=== PATIENT | male | born 1950 | race Caucasian/White ===

== ENCOUNTER 2016-07-17 17:19 | Emergency (ER) | payer MEDICARE, OTHER ==
--- NOTE | ~2016-07-17 | CT71 ---
[facility] A Service of [facility] & [facility] / [facility] RADIOLOGY TEXT RESULTS PATIENT: LUIS DE SANTIAGO LOCATION: [facility] : 50 UNIT #: [id number] AGE: [address]: Dameon Aguilera MD SEX: M ORDER DR: [id number] [facility] [address] [place], [place] [address] [id number] MR#: [id number] Acc #: [id number] NAME: LUIS DE SANTIAGO. : 1950 SEX: M STUDY DATE/TIME: 07/17/2016 19:56 UNIT: [facility] ROOM: STUDY DESCRIPTION: CT Head Wo Contrast Attending Physician: Dameon Aguilera M.D. Ordering Physician: Dameon Aguilera M.D. Primary Care Physician: Primary Care Physician No MEDICAL IMAGING REPORT This report is preliminary unless electronic signature is present EXAM CT brain without contrast HISTORY Headache for 2 weeks. Hypertension. FINDINGS This CT exam was performed with one or more of the following radiation dose reduction techniques: Automatic exposure control, adjustment of mA and/or kV according to patient size, and iterative reconstruction. CT brain without contrast demonstrates no intracranial hemorrhage, mass or edema. No midline shift or ventricular dilatation or extraaxial fluid collection. Minimal chronic ischemic changes in the periventricular white matter bilaterally. IMPRESSION No acute findings. Dictated by... López Darling M.D. THIS IS AN ELECTRONICALLY VERIFIED REPORT López Darling M.D. at 07/18/2016 5:28 PM DFL/psc TD: 07/18/2016 00:39 JOB #: [id number] MEDICAL IMAGING REPORT Page 1 of 1 COPY
[2016-07-17] MEDS ORDERED: LIPITOR40 MG PO (17:34)
[2016-07-17] MEDS ORDERED: WELLBUTRIN100 MG PO (17:34)
[2016-07-17] MEDS ORDERED: ZESTORETIC 20-1 EAC1 PO (17:35)
[2016-07-17] MEDS ORDERED: K-DUR20 ME2 PO (17:36)
[2016-07-17] MEDS ORDERED: ZOLOFT100 MG PO (17:37)
[2016-07-17 18:44] LABS: BASOPHIL# 0.1 X10e3 (0-0.3); BASOPHIL% 0.6 % (0-2.5); EOSINOPHIL% 0.1 % (0.0-7.0); HEMATOCRIT 46.4 % (38.0-50.0); LYMPHOCYTE# 1.4 X10e3 (1.0-3.5); LYMPHOCYTE% 11.6 % (17.0-45.0); MEAN CELL VOLUME 89.8 FL (83-96); MEAN CORPUSCULAR HGB CONC 32.3 g/dL (30-36); MEAN PLATELET VOLUME 8.9 FL (6.5-11.5); MONOCYTE# 0.5 X10e3 (0-1.0); MONOCYTE% 3.7 % (3.0-12.0); NEUTROPHIL# 10.4 X10e3 (1.5-7.1); PLATELET COUNT 229 X10e3 (140-420); RED BLOOD COUNT 5.16 X10e (3.90-5.60); RED CELL DISTRIBUTION WIDTH 14.4 % (11.0-15.5); WHITE BLOOD COUNT 12.4 X10e3 (4.0-10.5)
[2016-07-17 18:46] LABS: DIFF IND NO
[2016-07-17 18:50] LABS: POC - CKMB 1.5 ng/mL (0.0-7.9); POC - TROPONIN <0.05 ng/mL (<=0.05)
[2016-07-17 19:00] LABS: BUN/CREATININE RATIO 22.5; CREATININE SERUM 0.8 mg/dL (0.6-1.4); GLOM FILT RATE Estimated 93.8 mL/min (>60); POTASSIUM 3.7 mmol/L (3.5-5.1)
== END 2016-07-17 21:42 | disposition home or self-care (01) ==
LOC: CED 17:19
PROVIDERS: Emergency Medicine
DX: R51 Headache (principal); I10 Essential (primary) hypertension
CPT/HCPCS: 36415; 70450; 80048; 82553; 84484; 85025; 96374; 96375; 96376; 99284; J0780; J1100; J1200; J1885